=== PATIENT | male | born 1970 | race Caucasian/White ===

== ENCOUNTER 2022-08-19 00:01 | Emergency (ER) | payer BC ==
[~2022-08-19] VITALS: Ht 180.3 cm; Wt 88.0 kg
[2022-08-19 00:31] LABS: BASOPHILS % 0.5 % (0.0-1.0); EOSINOPHILS # (AUTO) 0.2 (0.0-0.4); EOSINOPHILS % 3.4 % (0.0-6.0); HEMATOCRIT 49.6 % (38.2-49.6); HEMOGLOBIN 17.3 g/dL (14.0-18.0); LYMPHOCYTES # (AUTO) 2.2 (1.0-3.2); LYMPHOCYTES % 37.6 % (18.0-39.1); MEAN CORPUSCULAR HEMOGLOBIN 35.5 pg (28-32); MEAN CORPUSCULAR HGB CONC 34.9 g/dL (31-35); MEAN CORPUSCULAR VOLUME 101.6 fL (81-99); MONOCYTES % 16.6 % (4.4-11.3); NEUTROPHILS # (AUTO) 2.5 (2.1-6.9); NEUTROPHILS % 41.7 % (38.7-80.0); PLATELET COUNT 247 x10e3/uL (140-360); RED BLOOD COUNT 4.88 x10e6/uL (4.3-5.7); RED CELL DISTRIBUTION WIDTH 11.4 % (11.7-14.4)
[2022-08-19 00:53] LABS: ALBUMIN 4.6 g/dL (3.5-5.0); ALBUMIN/GLOBULIN RATIO 1.2 (0.8-2.0); ANION GAP 14.7 mmol/L (8-16); CALCIUM 9.8 mg/dL (8.4-10.2); CREATININE, SERUM 0.8 mg/dL (0.72-1.25); POTASSIUM 3.7 mmol/L (3.5-5.1)
[2022-08-19 01:02] LABS: CREATINE KINASE MB 1.2 ng/mL (0-5.0)
== END 2022-08-19 01:10 | disposition home or self-care (01) ==
LOC: ER 00:12
DX: R10.11 Right upper quadrant pain (principal); R11.0 Nausea; R94.31 Abnormal electrocardiogram [ECG] [EKG]; F17.210 Nicotine dependence, cigarettes, uncomplicated
CPT/HCPCS: 36415; 80053; 82550; 82553; 83690; 84484; 85025; 93005; 99283